=== PATIENT | female | born 1945 | race Caucasian/White ===

== ENCOUNTER 2017-08-19 16:22 | Emergency (ER) | payer OTHER, SELFPAY ==
[~2017-08-19] VITALS: Ht 162.6 cm; Wt 68.1 kg
[2017-08-19 16:27] VITALS: BP 160/89
[2017-08-19] MEDS ORDERED: ADVAIR INH (16:53)
[2017-08-19] MEDS ORDERED: PROGESTERONE PO (16:53)
[2017-08-19] MEDS ORDERED: NIAC1000 PO (16:53)
== END 2017-08-19 18:15 | disposition home or self-care (01) ==
LOC: ED 18:09
DX: S16.1XXA Strain of muscle, fascia and tendon at neck level, initial encounter (principal); S00.31XA Abrasion of nose, initial encounter; S09.90XA Unspecified injury of head, initial encounter; I10 Essential (primary) hypertension; J45.909 Unspecified asthma, uncomplicated; W01.0XXA Fall on same level from slipping, tripping and stumbling without subsequent striking against object, initial encounter; Y93.01 Activity, walking, marching and hiking; Y99.8 Other external cause status; Y92.410 Unspecified street and highway as the place of occurrence of the external cause
CPT/HCPCS: 70450; 70486; 72125; 99284

== ENCOUNTER 2017-09-21 10:11 | Emergency (ER) | payer OTHER ==
[~2017-09-21] VITALS: Ht 162.6 cm; Wt 65.0 kg
[~2017-09-21 10:11] MED LIST: ADVAIR INH; NIAC1000 PO; PROGESTERONE PO
[2017-09-21] MEDS ORDERED: ONDANSETRON 2MG/ML, 2ML ONE ×2 (10:35→13:40)
[2017-09-21] MEDS ORDERED: HYDROmorphone 2 MG/ML, 1ML ONE ×2 (10:35→11:53)
[2017-09-21] MEDS: HYDROmorphone 2 MG/ML, 1ML IVPush PRN ×2 (10:50→11:56)
[2017-09-21] MEDS ORDERED: ONDANSETRON 2MG/ML, 2ML IVPush ONE ×2 (11:00→14:00)
[2017-09-21] MEDS ORDERED: SODIUM CHLORIDE FLUSH 10ML SYR IVF ONE (11:30)
[2017-09-21] MEDS ORDERED: PROMETHAZINE 25 MG/ML, 1ML IM ONE (14:00)
[2017-09-21] MEDS ORDERED: PROMETHAZINE 25 MG/ML, 1ML ONE (14:01)
[2017-09-21 14:54] VITALS: BP 125/75
[2017-09-26] MEDS ORDERED: ESTRACE (15:37)
[2017-09-26] MEDS ORDERED: VENTOLIN HFA (15:37)
[2017-09-26] MEDS ORDERED: LEVO88TA4 PO (15:37)
[2017-09-26] MEDS ORDERED: PROG200C15 PO (15:37)
[2017-09-26] MEDS ORDERED: FLUT1DIS3 INH (15:37)
[2017-09-26] MEDS ORDERED: ESTR0.753 PO (15:37)
[2017-09-26] MEDS ORDERED: FLUO10CA7 PO (15:37)
[2017-09-26] MEDS ORDERED: CHOL2000 PO (15:39)
[2017-09-26] MEDS ORDERED: OMEGA 3 (15:39)
== END 2017-09-21 14:57 | disposition home or self-care (01) ==
LOC: ED 11:17
DX: S06.0X0A Concussion without loss of consciousness, initial encounter (principal); S02.40CA Maxillary fracture, right side, initial encounter for closed fracture; S42.201A Unspecified fracture of upper end of right humerus, initial encounter for closed fracture; R91.1 Solitary pulmonary nodule; J45.909 Unspecified asthma, uncomplicated; Z90.89 Acquired absence of other organs; Z88.5 Allergy status to narcotic agent; W01.0XXA Fall on same level from slipping, tripping and stumbling without subsequent striking against object, initial encounter; Y93.89 Activity, other specified; Y92.098 Other place in other non-institutional residence as the place of occurrence of the external cause; Y99.8 Other external cause status
CPT/HCPCS: 29105; 70450; 70486; 71045; 72072; 73030; 73060; 73080; 96372; 96374; 96375; 96376; 99284; J1170; J2405; J2550

== ENCOUNTER 2017-09-26 22:04 | Inpatient (IN) | payer OTHER ==
[~2017-09-26] VITALS: Ht 162.6 cm; Wt 74.1 kg
[2017-09-26 15:15] VITALS: BP 134/74
[2017-09-26 16:08] LABS: BASOPHILS # (AUTO) 0.02 x10^3/uL (0-0.1); BASOPHILS % (AUTO) 0 % (0-1); EOSINOPHILS # (AUTO) 0.18 x10^3/uL (0-0.4); EOSINOPHILS % (AUTO) 3 % (1-7); LYMPHOCYTES # (AUTO) 1.11 x10^3/uL (1-3.4); LYMPHOCYTES % (AUTO) 16 % (22-44); MD NO; MEAN CORPUSCULAR HEMOGLOBIN 30.7 pg (27.0-34.8); MEAN CORPUSCULAR VOLUME 90.4 fL (80-100); MEAN PLATELET VOLUME 6.9 fL (7.4-10.4); MONOCYTES # (AUTO) 0.93 x10^3/uL (0.2-0.8); MONOCYTES % (AUTO) 14 % (2-9); NEUTROPHILS # (AUTO) 4.63 x10^3/uL (1.8-6.8); NEUTROPHILS % (AUTO) 67 % (42-75); PLATELET COUNT 304 x10^3/uL (130-400); RED BLOOD COUNT 4.01 x10^6/uL (3.82-5.3); RED CELL DISTRIBUTION WIDTH 13.9 % (9.6-15.2)
[2017-09-26 16:20] LABS: ALANINE AMINOTRANSFERASE 21 U/L (12-78); ALBUMIN 3.3 g/dL (3.4-5.0); ANION GAP 9 mmol/L (5-15); CALCIUM 8.9 mg/dL (8.5-10.1); CHLORIDE 100 mmol/L (98-107); CREATININE 0.69 mg/dL (0.55-1.02)
[2017-09-26 16:22] LABS: ALKALINE PHOSPHATASE 61 U/L (45-117); BILIRUBIN,TOTAL 0.5 mg/dL (0.2-1.0); TOTAL PROTEIN 7.2 g/dL (6.4-8.2)
[2017-09-26] MEDS: FENTANYL PF 100 MCG/2ML IV PRN ×3 (20:20→20:45)
[~2017-09-26 22:04] MED LIST changes: +ACETAMINOPHEN 500 MG TABLET PO ONE; +ALBUTEROL/IPRATROPIUM 2.5MG/0.5MG, 3 ML NPPB PRN; +CEFAZOLIN 1,000 MG ONE; +CHOL2000 PO; +CLINDAMYCIN 150 MG/ML, 6ML ONE; +DEXAMETHASONE 4 MG/ML, 1ML ONE; +DIAZEPAM 5 MG/ML, 2ML IVPush PRN; +ESTR0.753 PO; +ESTRACE; +FENTANYL PF 100 MCG/2ML ONE; +FLUO10CA7 PO; +FLUT1DIS3 INH; +GABAPENTIN 300 MG CAPSULE PO ONE; +HYDROmorphone 1 MG/ML, 1ML IV PRN; +LABETALOL 5MG/ML, 20ML IV PRN; +LEVO88TA4 PO; +MIDAZOLAM 1 MG/ML, 2ML IV PRN; +OMEGA 3; +ONDANSETRON 2MG/ML, 2ML IV PRN; +ONDANSETRON 2MG/ML, 2ML ONE; +OXYcodone 5 MG/5 ML ORAL.SOL UDC ONE; +OXYcodone 5 MG/5 ML ORAL.SOL UDC PO PRN; +PHENYLEPHRINE 10 MG/ML ONE; +PROG200C15 PO; +PROMETHAZINE 25 MG/ML, 1ML IV PRN; +PROPOFOL 10 MG/ML, 20ML ONE; +ROCURONIUM 10 MG/ML,10ML ONE; +SUCCINYLCHOLINE 20 MG/ML, 10ML ONE; +TRANEXAMIC ACID 100 MG/ML, 10ML ONE; +VENTOLIN HFA
[2017-09-26] MEDS ORDERED: morphine SULFATE 10 MG/ML, 1ML IV PRN (22:30)
[2017-09-26] MEDS ORDERED: ONDANSETRON 2MG/ML, 2ML IV PRN (22:30)
[2017-09-26] MEDS ORDERED: HYDROmorphone 1 MG/ML, 1ML IM PRN (22:30)
[2017-09-26] MEDS ORDERED: POTASSIUM CHLORIDE 40 MEQ in D5%-0.45% NACL 1,000 ML IV SCH (22:30)
[2017-09-27] MEDS: OXYcodone/APAP 5/325MG TABLET PO PRN ×7 (00:04→21:04)
[2017-09-27 04:56] VITALS: BP 134/53
[2017-09-27] MEDS: CEFAZOLIN PMX 1GM/50ML 50 ML IVPB SCH ×2 (05:28→13:19)
[2017-09-27 06:47] VITALS: BP 133/83
[2017-09-27 14:08] VITALS: BP 135/71
[2017-09-27 14:49] LABS: ANION GAP 7 mmol/L (5-15); CALCIUM 8.5 mg/dL (8.5-10.1); CHLORIDE 103 mmol/L (98-107); CREATININE 0.89 mg/dL (0.55-1.02)
[2017-09-27 19:10] VITALS: BP 165/77
[2017-09-28] MEDS: OXYcodone/APAP 5/325MG TABLET PO PRN ×4 (01:17→09:18)
[2017-09-28 02:16] VITALS: BP 153/79
[2017-09-28 06:47] VITALS: BP 137/71
[2017-09-28] MEDS ORDERED: OXYC5TAB3 PO (09:08)
[2017-09-28] MEDS ORDERED: OXYcodone/APAP 5/325MG TABLET ONE (13:29)
== END 2017-09-28 11:45 | disposition home or self-care (01) | DRG 483 ==
LOC: OR 22:04 → 4NOR 22:06 → OR 22:53 → DCLOUNGE 09-28 11:21
PROVIDERS: ADMIT Orthopaedic Surgery; ATTEND Orthopaedic Surgery
PROC: 0LS30ZZ Reposition Right Upper Arm Tendon, Open Approach (ICD-10-PCS; 2017-09-26)
PROC: 0RRJ00Z Replacement of Right Shoulder Joint with Reverse Ball and Socket Synthetic Substitute, Open Approach (ICD-10-PCS; principal; 2017-09-26 17:00)
DX: S42.241A 4-part fracture of surgical neck of right humerus, initial encounter for closed fracture (principal); J96.10 Chronic respiratory failure, unspecified whether with hypoxia or hypercapnia; X58.XXXA Exposure to other specified factors, initial encounter; J45.909 Unspecified asthma, uncomplicated; E03.9 Hypothyroidism, unspecified; Y93.9 Activity, unspecified; Y92.89 Other specified places as the place of occurrence of the external cause; Z88.5 Allergy status to narcotic agent
CPT/HCPCS: 36415; 80048; 80053; 85025; 93005; C1713; C1776; J0690; J1100; J2250; J2405; J2704; J3010; J3360; J3480; J3490; J0330; J2370

== ENCOUNTER → 2017-10-20 | Outpatient (CLI) | payer OTHER ==
[~2017-10-20] MED LIST changes: -ACETAMINOPHEN 500 MG TABLET PO ONE; -ALBUTEROL/IPRATROPIUM 2.5MG/0.5MG, 3 ML NPPB PRN; +BUPIVACAINE/PF 0.5% ONE; -CLINDAMYCIN 150 MG/ML, 6ML ONE; -DIAZEPAM 5 MG/ML, 2ML IVPush PRN; -GABAPENTIN 300 MG CAPSULE PO ONE; -HYDROmorphone 1 MG/ML, 1ML IV PRN; -LABETALOL 5MG/ML, 20ML IV PRN; +LIDOCAINE GEL 2%, 5ML ONE; +LIDOCAINE-MPF 2% ,5ML ONE; +LIDOCAINE-MPF 2%, 2ML ONE; -MIDAZOLAM 1 MG/ML, 2ML IV PRN; +MIDAZOLAM 1 MG/ML, 2ML ONE; -ONDANSETRON 2MG/ML, 2ML IV PRN; +OXYC5TAB3 PO; -OXYcodone 5 MG/5 ML ORAL.SOL UDC ONE; -OXYcodone 5 MG/5 ML ORAL.SOL UDC PO PRN; -PHENYLEPHRINE 10 MG/ML ONE; -PROMETHAZINE 25 MG/ML, 1ML IV PRN; -ROCURONIUM 10 MG/ML,10ML ONE; -TRANEXAMIC ACID 100 MG/ML, 10ML ONE
== END | disposition home or self-care (01) ==
LOC: RAD 09:29
PROVIDERS: ATTEND Family Medicine
DX: D18.1 Lymphangioma, any site (principal); R59.0 Localized enlarged lymph nodes
CPT/HCPCS: 76942; J3490; J0690; J1100; J2250; J2405; J2704; J3010; J0330

== ENCOUNTER → 2018-01-26 | Outpatient (CLI) | payer OTHER ==
[~2018-01-26] MED LIST changes: -BUPIVACAINE/PF 0.5% ONE; -CEFAZOLIN 1,000 MG ONE; -DEXAMETHASONE 4 MG/ML, 1ML ONE; -FENTANYL PF 100 MCG/2ML ONE; -LIDOCAINE GEL 2%, 5ML ONE; -LIDOCAINE-MPF 2% ,5ML ONE; -LIDOCAINE-MPF 2%, 2ML ONE; -MIDAZOLAM 1 MG/ML, 2ML ONE; -ONDANSETRON 2MG/ML, 2ML ONE; -PROPOFOL 10 MG/ML, 20ML ONE; -SUCCINYLCHOLINE 20 MG/ML, 10ML ONE
== END | disposition home or self-care (01) ==
LOC: CFH 09:01
PROVIDERS: ATTEND Family Medicine
DX: Z12.31 Encounter for screening mammogram for malignant neoplasm of breast (principal); Z13.820 Encounter for screening for osteoporosis; M85.88 Other specified disorders of bone density and structure, other site; M81.0 Age-related osteoporosis without current pathological fracture; N95.1 Menopausal and female climacteric states
CPT/HCPCS: 77080; 77067